=== PATIENT | female | born 1975 | race Caucasian/White ===

== ENCOUNTER → 2024-06-25 09:29 | Outpatient (REF) | payer OTHER, SELFPAY | LOC: RCS 09:29 | PROVIDERS: ATTENDING PHYSICIAN Family Medicine | DX: R00.2 Palpitations (principal) | CPT/HCPCS: 93225; 93226 ==

== ENCOUNTER 2025-03-09 12:34 | Emergency (ER) | payer OTHER, SELFPAY ==
[2025-03-09 12:37] VITALS: BP 149/91
--- NOTE | 2025-03-09 12:49 | ED.GENMED ---
History of Present Illness
General
Chief Complaint: Insect Sting
Time Seen by Provider: 03/09/25 12:49
History of Present Illness
History of Present Illness:
FOCUSED PAST MEDICAL HISTORY
- No significant past medical history
REVIEW OF OLD RECORDS
- No old records available for review
Note:
CHIEF COMPLAINT(S)
Bee sting to the R arm.
HISTORY OF PRESENT ILLNESS
The patient is a 50-year-old female who presents after being stung by a bee on her right upper extremity. This occurred near her friends house in [place]. The patient did not attempt any home remedies and went directly to the emergency department
after the sting, approximately 30 minutes post-exposure. She reported no sensation of throat closure or respiratory distress. The patient was initially worried about the need for anti-venom, which she researched online, but was informed that there
is no anti-venom available for bee stings in this setting. The patient was reassured after examination revealed no immediate signs of an anaphylactic reaction, such as wheezing or throat swelling.
PHYSICAL EXAM
General: Alert, no acute distress.
Skin: Warm, dry. Evidence of a sting site on the back with mild localized swelling.
Head: Normocephalic, atraumatic.
Neck: Supple, trachea midline.
Eye Ears, nose, mouth and throat: Oral mucosa moist. No edema observed in the throat.
Cardiovascular: Normal peripheral perfusion, No edema.
Respiratory: Respirations are non-labored. No wheezing noted.
Gastrointestinal: Abdomen nondistended
Back: Normal range of motion, evidence of sting site.
Musculoskeletal: Normal ROM, normal strength.
Neurological: Alert and oriented to person, place, time, and situation, No focal neurological deficit observed.
Psychiatric: Cooperative, appropriate mood & affect.
PLAN
1. Administer a dose of steroids immediately to prevent any worsening of the reaction.
2. Prescribe a course of steroids to be filled at the patients pharmacy, [facility], in case of persistent symptoms the following day.
3. Recommend taking Benadryl at home as needed for symptoms.
4. Provide Pepsid as an additional histamine sonido.
5. Advise the patient that symptoms may resolve significantly by later tonight and that continued medication may not be necessary if the symptoms subside.
DIFFERENTIAL DIAGNOSIS
The Differential Diagnosis includes, in no particular order and is not limited to:
1. Localized allergic reaction to bee sting
2. Anaphylaxis
3. Cellulitis
4. Urticaria
5. Angioedema
6. Insect allergy
7. Anxiety reaction
8. Dermatitis
9. Systemic allergic response
10. Pain secondary to sting or irritant
Note:
CHIEF COMPLAINT(S)
Bee sting to the R arm.
HISTORY OF PRESENT ILLNESS
The patient is a 50-year-old female who presents after being stung by a bee on her proximal right upper extremity. This occurred near her friends house in [place]. The patient did not attempt any home remedies and went directly to the emergency
department after the sting, approximately 30 minutes post-exposure. She reported no sensation of throat closure or respiratory distress. The patient was initially worried about the need for anti-venom, which she researched online, but was informed
that there is no anti-venom available for bee stings in this setting. The patient was reassured after examination revealed no immediate signs of an anaphylactic reaction, such as wheezing or throat swelling.
PHYSICAL EXAM
General: Alert, no acute distress.
Skin: Warm, dry. Evidence of a sting site on the medial right upper extremity with mild localized swelling.
Head: Normocephalic, atraumatic.
Neck: Supple, trachea midline.
Eye Ears, nose, mouth and throat: Oral mucosa moist. No edema observed in the throat.
Cardiovascular: Normal peripheral perfusion, No edema.
Respiratory: Respirations are non-labored. No wheezing noted.
Gastrointestinal: Abdomen nondistended
Back: Normal range of motion, evidence of sting site.
Musculoskeletal: Normal ROM, normal strength.
Neurological: Alert and oriented to person, place, time, and situation, No focal neurological deficit observed.
Psychiatric: Cooperative, appropriate mood & affect.
PLAN
1. Administer a dose of steroids immediately to prevent any worsening of the reaction.
2. Prescribe a course of steroids to be filled at the patients pharmacy, [facility], in case of persistent symptoms the following day.
3. Recommend taking Benadryl at home as needed for symptoms.
4. Provide Pepsid as an additional histamine sonido.
5. Advise the patient that symptoms may resolve significantly by later tonight and that continued medication may not be necessary if the symptoms subside.
DIFFERENTIAL DIAGNOSIS
The Differential Diagnosis includes, in no particular order and is not limited to:
1. Localized allergic reaction to bee sting
2. Anaphylaxis
3. Cellulitis
4. Urticaria
5. Angioedema
6. Insect allergy
7. Anxiety reaction
8. Dermatitis
9. Systemic allergic response
10. Pain secondary to sting or irritant
Phy Exam
Physical Exam
Physical Exam:
See HPI
Course
Orders/Labs/Results
Orders:
Orders
03/09/25 12:59
Prednisone [Deltasone] 50 mg PO NOW STA
03/09/25 13:01
Famotidine [Pepcid] 40 mg PO NOW STA
Vital Signs
Initial and Last Documented VS:
Initial Vital Signs
Temp Pulse Resp BP Pulse Ox
36.6 C 84 16 149/91 98
03/09/25 12:37 03/09/25 12:37 03/09/25 12:37 03/09/25 12:37 03/09/25 12:37
Last Documented Vital Signs
Temp Pulse Resp BP Pulse Ox
36.6 C 84 16 149/91 98
03/09/25 12:37 03/09/25 12:37 03/09/25 12:37 03/09/25 12:37 03/09/25 12:37
*Pulse Oximetry
SaO2: 98
Oxygen Mode of Delivery: Room air
Patient hypoxic: no
*Critical Care Note
Total Time (30-74mins, 75-104mins- exclusive of procedures): Not Applicable
ED Attending Note
-
Portions of this chart may have been created with voice recognition software.� Occasional wrong word or��sound alike� substitutions may have occurred due to the inherent limitations of voice recognition software.
Discharge Plan
Departure
Patient Disposition: Home (Routine Discharge)
Date of Disposition: 03/09/25
Time of Disposition: 13:00
Patient with high blood pressure during this ER visit?: Yes
Discharge Problem:
Allergic reaction to insect sting
Prescriptions:
New
prednisone 50 mg tablet
50 mg PO DAILY Qty: 4 0RF
Activity Restrictions/Additional Instructions:
You could also try cool compress when you get home. We gave you a dose of prednisone and Pepcid to help treat the reaction. I am not aware of any antivenom for this situation. If your symptoms persist tomorrow, you could continue with the
prednisone prescription which I have sent to your pharmacy. I also recommend taking Benadryl 1-2 tabs every 6-8 hours while symptomatic.
Interventions
Interventions:
*Risk Screen - Suicide Last Done: 03/09/25 12:37
*Neglect/Abuse Screening Last Done: 03/09/25 12:37
Discharge Date and Time
Print Language: DIVEHI
[2025-03-09] MEDS: DELTASONE 50 MG PO (13:09)
[2025-03-09] MEDS: PEPCID 40 MG PO (13:10)
== END 2025-03-09 13:38 | disposition home or self-care (01) ==
LOC: EMR 12:34
PROVIDERS: EMERGENCY PHYSICIAN Emergency Medicine; FAMILY PHYSICIAN Family Medicine
DX: T63.441A Toxic effect of venom of bees, accidental (unintentional), initial encounter (principal); R03.0 Elevated blood-pressure reading, without diagnosis of hypertension
CPT/HCPCS: 99283